=== PATIENT | male | born 1975 | race Caucasian/White ===

== ENCOUNTER 2019-08-01 12:06 | Day surgery (SDC) | payer MEDICAID ==
[~2019-08-01 12:06] MED LIST: Midazolam 1 MG/ML 2 ML SDV ONE; Propofol 200 MG/20 ML SDV ONE; fentaNYL 100 MCG/2 ML SDV ONE
[2019-08-01] MEDS ORDERED: Dextrose 5%-Lactated Ringers 1,000 ML IV SCH (12:30)
[2019-08-01 13:26] VITALS: BP 107/73; PULSE 64
[2019-08-01] MEDS ORDERED: Ondansetron 4 MG Tab.DIS PO ONE (14:10)
--- NOTE | 2019-08-06 08:44 | OR ---
DATE OF PROCEDURE: 08/01/2019 SURGEON: Pablito Valera MD PREOPERATIVE DIAGNOSIS: History of colon carcinoma. POSTOPERATIVE DIAGNOSIS: History of colon carcinoma with no recurrent neoplasia. OPERATIVE PROCEDURE: Flexible colonoscopy. ANESTHESIA: IV sedation. INDICATION FOR PROCEDURE: The patient is status post resection of the distal transverse colon and splenic flexure in 2016 for an adenocarcinoma. He has not had a post resection colonoscopy at this point, and plan is to proceed with a colonoscopy with biopsy and/or polypectomy as indicated. Potential risks of the procedure including bleeding and perforation were discussed, and the patient wishes to proceed. DETAILS OF PROCEDURE: The patient was taken to the operating room and placed in a left lateral decubitus position. IV sedation was administered, after which the initial digital rectal exam was performed, which was unremarkable. Colonoscope was then passed into the rectum with retroflexion revealing uncomplicated hemorrhoidal columns. Scope was then passed eventually to the level of the cecum. To that level, there were no diverticula and no areas of colitis. During examination, there was no evidence of any recurrent polyp formation nor was there any evidence of local recurrence at the colon anastomosis. Overall, we had an adequate prep, and the surfaces were not well visualized. Scope was then withdrawn, the above findings reconfirmed, and the procedure then concluded. With the patient being 44 years' old and already having had a colon carcinoma, I would recommend a repeat colonoscopy in 3 years. Pablito Valera MD /[id number]
== END 2019-08-01 14:20 | disposition home or self-care (01) ==
LOC: JP.SDS 12:06
PROVIDERS: ATTEND Surgery
DX: Z08 Encounter for follow-up examination after completed treatment for malignant neoplasm (principal); Z85.038 Personal history of other malignant neoplasm of large intestine; Z90.49 Acquired absence of other specified parts of digestive tract
CPT/HCPCS: A9270-GY; J2250; J2704; J3010; J7121

== ENCOUNTER 2019-09-12 05:37 | Day surgery (SDC) | payer MEDICAID ==
[2019-09-12] MEDS ORDERED: Dextrose 5%-Lactated Ringers 1,000 ML IV SCH (06:00)
[2019-09-12] MEDS ORDERED: Acetaminophen 500 MG Tab PO ONE (06:00)
[2019-09-12] MEDS ORDERED: Bupivacaine 0.5%/EPINEPHrine 1:200,000 50 ML MDV ONE (06:41)
[2019-09-12] MEDS ORDERED: Lidocaine 1% with EPINEPHrine 1:100,000 50 ML MDV ONE (07:03)
[2019-09-12] MEDS ORDERED: Bupivacaine 0.5% 50 ML MDV ONE (07:03)
[2019-09-12] MEDS ORDERED: fentaNYL 100 MCG/2 ML SDV ONE (07:07)
[2019-09-12] MEDS ORDERED: Propofol 200 MG/20 ML SDV ONE ×3 (07:07→08:00)
[2019-09-12] MEDS ORDERED: Midazolam 1 MG/ML 2 ML SDV ONE (07:07)
[2019-09-12] MEDS: ceFAZolin 2 GM in Premix Bag 1 BAG IV ONE ×2 (07:40→09:59)
[2019-09-12] MEDS ORDERED: Acetaminophen/oxyCODONE 325-5 MG Tab PO PRN (09:01)
[2019-09-12 10:03] VITALS: BP 116/85; PULSE 64
--- NOTE | 2019-09-22 12:09 | OR ---
DATE OF PROCEDURE: 09/12/2019 SURGEON: Pablito Valera MD PREOPERATIVE DIAGNOSIS: Recurrent incarcerated left inguinal hernia. POSTOPERATIVE DIAGNOSIS: 1. Recurrent incarcerated left inguinal hernia. 2. Prolapsed intraperitoneal mesh. 3. Ilioinguinal nerve at risk for scar entrapment. OPERATIVE PROCEDURES: 1. Repair of recurrent incarcerated left inguinal hernia with mesh plug technique (94250). 2. Removal of prolapsed intraperitoneal mesh (13818). 3. Excision of portion of left ilioinguinal nerve (86048). ANESTHESIA: Local plus IV sedation. CUSTOMER [employer] ARCHITECT: Jasmin Ashby PA-C INDICATIONS FOR PROCEDURE: This is a 44-year-old presenting with recurrent incarcerated left inguinal hernia, which was previously repaired with a mesh plug technique. Plan is to proceed with re-exploration and repair of the hernia, most likely with additional plug technique being employed. Potential risks of the procedure including bleeding, infection, injury to underlying viscera, problems with mesh becoming infected or the hernia recurring, chronic pain following the procedure were all reviewed, and the patient wishes to proceed. DETAILS OF PROCEDURE: The patient was taken to the operating room and placed in a supine position. After IV sedation was administered, the abdomen and groin areas were prepped and draped. The left inguinal area was then anesthetized with 1% lidocaine mixed with Marcaine and the previous incision was then reused and carried down through the skin, subcutaneous tissue, and through the external oblique aponeurosis. Subaponeurotic flaps were then raised superiorly and inferiorly. The ilioinguinal nerve on the left side was then identified and this was felt to likely be at risk for scar entrapment and portion of this was excised onto the lateral aspect of the incision. The cord structures were then mobilized upward. The patient was noted to have recurrent direct type hernia in this case. This involved some prolapse of the previously placed mesh plug into the intraperitoneal location. This was gradually excised. Peritoneum attached to it was excised and then subsequently closed with some 3-0 Vicryl stitch. New extra large mesh plug was then selected. This was placed into the defect and affixed to the Griffin's ligament with titanium tacking screws and then the underside of the conjoint tendon medially, superiorly, and laterally with horizontal mattress sutures of 2-0 Vicryl stitch. The conjoint tendon was then sutured down to the shelving portion of the inguinal ligament with a 0 Vicryl stitch as well. The flat portion of the mesh plug system was then placed onto the inguinal floor, fixed to pubic tubercle with tacking screw and then sutured lateral to the cord structures with 3-0 Vicryl stitch. The external oblique aponeurosis was then reapproximated with 3-0 Vicryl stitch as was the subcutaneous tissue and the skin closed with a 4-0 Vicryl subcuticular stitch. Dressing was applied. The patient was taken to the recovery room in satisfactory condition. Physician senior sales assistant, Jasmin Ashby, played an essential role in assisting in this case, helping to position the patient, retract structures as needed, as well as suturing and cutting sutures when indicated. Her presence improved patient safety and decreased operative time. Pablito Valera MD /[id number]
== END 2019-09-12 09:45 | disposition home or self-care (01) ==
LOC: JP.SDS 05:37
PROVIDERS: ATTEND Surgery
DX: K40.31 Unilateral inguinal hernia, with obstruction, without gangrene, recurrent (principal)
CPT/HCPCS: 49521; 64772; 88300; 88302; A9270; C1713; C1781; J0690; J2020; J2250; J2704; J3010; J3490; J7121

== ENCOUNTER 2019-09-28 17:57 | Emergency (ER) | payer MEDICAID ==
[2019-09-28 18:17] VITALS: BP 109/72; PULSE 88
[2019-09-28] MEDS ORDERED: Sodium Chloride 0.9% 10 ML Syringe FLUSH PRN (18:25)
[2019-09-28] MEDS ORDERED: fentaNYL 100 MCG/2 ML SDV IVPUSH ONE (18:28)
[2019-09-28] MEDS ORDERED: Lactated Ringers 1,000 ML IV SCH (18:30)
--- NOTE | 2019-09-28 18:30 | EDM.PDOC ---
ED HPI GENERAL MEDICAL PROBLEM - General Chief Complaint: Abdominal Pain Stated Complaint: LOWER LT SIDE PAIN Time Seen by Provider: 09/28/19 18:21 Source of Information: Reports: Patient, Family, RN Notes Reviewed History Limitations: Reports: No Limitations - History of Present Illness INITIAL COMMENTS - FREE TEXT/NARRATIVE: 44-year-old gentleman presents emergency department a complaint of abdominal pain, he is postop 2 weeks inguinal hernia repair on the left side he states initially had some improvement but then the pain has continually gotten worse his biggest trouble is he feels the pain shooting down into his testicle he has had some inflamed testicles which did resolve but the pain is now not improving left side Pain Score (Numeric/FACES): 8 - Related Data Allergies Allergy/AdvReac Type Severity Reaction Status Date / Time tramadol Allergy Diaphoresis Verified 09/28/19 18:06 Home Meds: Home Meds Ketorolac [Toradol] 10 mg PO TID PRN #20 tab 09/28/19 [Rx] oxyCODONE HCl/Acetaminophen [Percocet 5-325 mg Tablet] 1 tab PO Q6H PRN [History] Past Medical History HEENT History: Reports: Hard of Hearing Respiratory History: Reports: Other (See Below) Other Respiratory History: lung nodule Gastrointestinal History: Reports: Other (See Below) Other Gastrointestinal History: bilateral inguinal hernia Musculoskeletal History: Reports: Back Pain, Chronic Neurological History: Reports: Concussion Oncologic (Cancer) History: Reports: Colon - Infectious Disease History Infectious Disease History: Reports: Chicken Pox - Past Surgical History HEENT Surgical History: Reports: Adenoidectomy, Other (See Below) Other HEENT Surgeries/Procedures: adnoidectomy Respiratory Surgical History: Reports: None GI Surgical History: Reports: Colonoscopy, Hernia, Inguinal, Other (See Below) Other GI Surgeries/Procedures: colon resectin 01/26/2016 Neurological Surgical History: Reports: None Musculoskeletal Surgical History: Reports: None Oncologic Surgical History: Reports: Other (See Below) Other Oncologic Surgeries/Procedures: colon resection Dermatological Surgical History: Reports: None Social & Family History - Family History Family Medical History: Noncontributory Cardiac: Reports: Heart Murmur, High Cholesterol, Hypertension Respiratory: Reports: Asthma GI: Reports: Other (See Below) Other GI Family History: hernia-unknown where per pt. Musculoskeletal: Reports: Arthritis Neurological: Reports: Migraines Endocrine/Metabolic: Reports: Diabetes, Gestational, Diabetes, Type I Hematologic: Reports: Anesthesia Reaction Oncologic: Reports: Breast, Ovarian - Tobacco Use Smoking Status *Q: Never Smoker - Caffeine Use Caffeine Use: Reports: Soda - Recreational Drug Use Recreational Drug Use: Yes Recreational Drug Type: Reports: Marijuana/Hashish Recreational Drug Use Frequency: Monthly ED ROS GENERAL - Review of Systems Review Of Systems: See Below Constitutional: Reports: No Symptoms HEENT: Reports: No Symptoms Respiratory: Reports: No Symptoms Cardiovascular: Reports: No Symptoms GI/Abdominal: Reports: Abdominal Pain, Flatus. Denies: Nausea, Vomiting : Reports: No Symptoms Musculoskeletal: Reports: No Symptoms ED EXAM, GI/ABD - Physical Exam Exam: See Below Exam Limited By: No Limitations General Appearance: Alert, WD/WN, No Apparent Distress Neck: Normal Inspection, Supple, Non-Tender, Full Range of Motion Respiratory/Chest: No Respiratory Distress, Lungs Clear, Normal Breath Sounds, No Accessory Muscle Use, Chest Non-Tender Cardiovascular: Regular Rate, Rhythm, No Murmur GI/Abdominal Exam: Soft, Tender (Male) Exam: Normal Inspection, Scrotum Tenderness (L) Course - Vital Signs Last Recorded V/S: Last Vital Signs Temp 97 F 09/28/19 18:16 Pulse 88 09/28/19 18:16 Resp 12 09/28/19 18:16 BP 109/72 09/28/19 18:16 Pulse Ox 95 09/28/19 18:16 - Orders/Labs/Meds Orders: Active Orders 24 hr Category Date Time Status Peripheral IV Care [RC] . DIRECTED Care 09/28/19 18:25 Active Iopamidol [Isovue-300 (61%)] Med 09/28/19 18:45 Active 100 ml IV . DIRECTED Lactated Ringers [Ringers, Lactated] 1,000 ml Med 09/28/19 18:30 Active IV ASDIRECTED Sodium Chloride 0.9% [Normal Saline] 72 ml Med 09/28/19 18:45 Active IV ASDIRECTED Sodium Chloride 0.9% [Saline Flush] Med 09/28/19 18:25 Active 10 ml FLUSH ASDIRECTED PRN Peripheral IV Insertion Adult [OM.PC] Urgent Oth 09/28/19 18:25 Ordered Medication Orders Lactated Ringer's (Ringers, Lactated) 1,000 mls @ 999 mls/hr IV ASDIRECTED JOSHUA Last Admin: 09/28/19 18:36 Dose: 999 mls/hr Sodium Chloride (Normal Saline) 72 mls @ 3.5 mls/sec IV ASDIRECTED JOSHUA Last Admin: 09/28/19 18:54 Dose: 2.5 mls/sec Iopamidol (Isovue-300 (61%)) 100 ml IV . DIRECTED JOSHUA Last Admin: 09/28/19 18:53 Dose: 100 ml Sodium Chloride (Saline Flush) 10 ml FLUSH ASDIRECTED PRN PRN Reason: Keep Vein Open Last Admin: 09/28/19 18:54 Dose: 10 ml Labs: Laboratory Tests 09/28/19 09/28/19 09/28/19 Range/Units 18:16 18:38 18:38 WBC 9.9 (4.5-11.0) K/uL RBC 5.57 (4.30-5.90) M/uL Hgb 15.6 H D (12.0-15.0) g/dL Hct 47.8 (40.0-54.0) % MCV 86 (80-98) fL MCH 28 (27-31) pg MCHC 33 (32-36) % Plt Count 363 (150-400) K/uL Neut % (Auto) 61 (36-66) % Lymph % (Auto) 26 (24-44) % [place] % (Auto) 11 H (2-6) % Eos % (Auto) 1 L (2-4) % Baso % (Auto) 0 (0-1) % Sodium 143 (140-148) mmol/L Potassium 4.7 (3.6-5.2) mmol/L Chloride 104 (100-108) mmol/L Carbon Dioxide 26 (21-32) mmol/L Anion Gap 12.9 (5.0-14.0) mmol/L BUN 22 H D (7-18) mg/dL Creatinine 1.0 (0.8-1.3) mg/dL Est Cr Clr Drug Dosing 91.20 mL/min Estimated GFR (MDRD) > 60 (>60) Glucose 87 (74-106) mg/dL Lactic Acid (0.4-2.0) mmol/L Calcium 8.8 (8.5-10.1) mg/dL Total Bilirubin 0.4 (0.2-1.0) mg/dL AST 20 (15-37) U/L ALT 28 (12-78) U/L Alkaline Phosphatase 83 (46-116) U/L Total Protein 7.6 (6.4-8.2) g/dL Albumin 3.7 (3.4-5.0) g/dL Globulin 3.9 H (2.3-3.5) g/dL Albumin/Globulin Ratio 1.0 L (1.2-2.2) Lipase 125 (73-393) U/L Urine Color Yellow (YELLOW) Urine Appearance Clear (CLEAR) Urine pH 5.5 (5.0-8.0) Ur Specific [place] >= 1.030 (1.008-1.030) Urine Protein Negative (NEGATIVE) mg/dL Urine Glucose (UA) Negative (NEGATIVE) mg/dL Urine Ketones Negative (NEGATIVE) mg/dL Urine Occult Blood Trace-intact H (NEGATIVE) Urine Nitrite Negative (NEGATIVE) Urine Bilirubin Negative (NEGATIVE) Urine Urobilinogen 0.2 (0.2-1.0) EU/dL Ur Leukocyte Esterase Negative (NEGATIVE) Urine RBC Not seen (0-5) Urine WBC 0-5 (0-5) Ur Epithelial Cells Rare Amorphous Sediment Rare Urine Bacteria Rare Urine Mucus Few 09/28/19 Range/Units 18:38 WBC (4.5-11.0) K/uL RBC (4.30-5.90) M/uL Hgb (12.0-15.0) g/dL Hct (40.0-54.0) % MCV (80-98) fL MCH (27-31) pg MCHC (32-36) % Plt Count (150-400) K/uL Neut % (Auto) (36-66) % Lymph % (Auto) (24-44) % [place] % (Auto) (2-6) % Eos % (Auto) (2-4) % Baso % (Auto) (0-1) % Sodium (140-148) mmol/L Potassium (3.6-5.2) mmol/L Chloride (100-108) mmol/L Carbon Dioxide (21-32) mmol/L Anion Gap (5.0-14.0) mmol/L BUN (7-18) mg/dL Creatinine (0.8-1.3) mg/dL Est Cr Clr Drug Dosing mL/min Estimated GFR (MDRD) (>60) Glucose (74-106) mg/dL Lactic Acid 1.4 (0.4-2.0) mmol/L Calcium (8.5-10.1) mg/dL Total Bilirubin (0.2-1.0) mg/dL AST (15-37) U/L ALT (12-78) U/L Alkaline Phosphatase (46-116) U/L Total Protein (6.4-8.2) g/dL Albumin (3.4-5.0) g/dL Globulin (2.3-3.5) g/dL Albumin/Globulin Ratio (1.2-2.2) Lipase (73-393) U/L Urine Color (YELLOW) Urine Appearance (CLEAR) Urine pH (5.0-8.0) Ur Specific [place] (1.008-1.030) Urine Protein (NEGATIVE) mg/dL Urine Glucose (UA) (NEGATIVE) mg/dL Urine Ketones (NEGATIVE) mg/dL Urine Occult Blood (NEGATIVE) Urine Nitrite (NEGATIVE) Urine Bilirubin (NEGATIVE) Urine Urobilinogen (0.2-1.0) EU/dL Ur Leukocyte Esterase (NEGATIVE) Urine RBC (0-5) Urine WBC (0-5) Ur Epithelial Cells Amorphous Sediment Urine Bacteria Urine Mucus Meds: Medications Generic Name Dose Route Start Last Admin Trade Name Freq PRN Reason Stop Dose Admin Lactated Ringer's 1,000 mls @ 999 mls/hr 09/28/19 18:30 09/28/19 18:36 Ringers, Lactated IV 999 mls/hr ASDIRECTED JOSHUA Administration Sodium Chloride 72 mls @ 3.5 mls/sec 09/28/19 18:45 09/28/19 18:54 Normal Saline IV 2.5 mls/sec ASDIRECTED JOSHUA Administration Iopamidol 100 ml 09/28/19 18:45 09/28/19 18:53 Isovue-300 (61%) IV 100 ml . DIRECTED JOSHUA Administration Sodium Chloride 10 ml 09/28/19 18:25 09/28/19 18:54 Saline Flush FLUSH 10 ml ASDIRECTED PRN Administration Keep Vein Open Discontinued Medications Generic Name Dose Route Start Last Admin Trade Name Freq PRN Reason Stop Dose Admin Fentanyl 50 mcg 09/28/19 18:28 09/28/19 18:36 Sublimaze IVPUSH 09/28/19 18:29 50 mcg ONETIME ONE Administration Sodium Chloride 10 ml 09/28/19 18:32 09/28/19 18:35 Saline Flush FLUSH 09/28/19 18:33 10 ml ONETIME ONE Administration Departure - Departure Time of Disposition: 20:24 Disposition: Home, Self-Care 01 Condition: Fair Clinical Impression: Seroma - Discharge Information Prescriptions: Ketorolac [Toradol] 10 mg PO TID PRN #20 tab PRN Reason: Pain Referrals: Pablito Valera MD [Primary Care Provider] - Forms: ED Department Discharge Additional Instructions: Started Toradol 1 tablet 3 times a day to reduce inflammation, please follow-up Dr. Valera Sunday at 11 AM, please call the [facility] tomorrow morning to confirm your appointment time, your medications have been faxed to [facility] pharmacy Sepsis Event Note - Evaluation Sepsis Screening Result: No Definite Risk - Focused Exam Vital Signs: Vital Signs Temp Pulse Resp BP Pulse Ox 09/28/19 18:16 97 F 88 12 109/72 95 Date Exam was Performed: 09/28/19 Time Exam was Performed: 20:22 - My Orders Last 24 Hours: My Active Orders 09/28/19 18:25 Peripheral IV Care [RC] . DIRECTED Sodium Chloride 0.9% [Saline Flush] 10 ml FLUSH ASDIRECTED PRN Peripheral IV Insertion Adult [OM.PC] Urgent 09/28/19 18:30 Lactated Ringers [Ringers, Lactated] 1,000 ml IV ASDIRECTED 09/28/19 18:45 Iopamidol [Isovue-300 (61%)] 100 ml IV . DIRECTED Sodium Chloride 0.9% [Normal Saline] 72 ml IV ASDIRECTED - Assessment/Plan Last 24 Hours: My Active Orders 09/28/19 18:25 Peripheral IV Care [RC] . DIRECTED Sodium Chloride 0.9% [Saline Flush] 10 ml FLUSH ASDIRECTED PRN Peripheral IV Insertion Adult [OM.PC] Urgent 09/28/19 18:30 Lactated Ringers [Ringers, Lactated] 1,000 ml IV ASDIRECTED 09/28/19 18:45 Iopamidol [Isovue-300 (61%)] 100 ml IV . DIRECTED Sodium Chloride 0.9% [Normal Saline] 72 ml IV ASDIRECTED Plan: Assessment Acuity = acute Site and laterality = seroma left inguinal region area pushing on spermatic cord Etiology = unknown probable postoperative Manifestations = pelvic pain testicular pain Location of injury = Home Lab values = CBC, CMP unremarkable urinalysis unremarkable CT scan describes a 2.8 x 2.7 x 3.7 fluid collection left inguinal region Plan Call discussed case Dr. Valera at 2019 recommended Toradol 10 mg p.o. 3 times daily total #20 follow-up with Dr. Valera in clinic Sunday of next week at 11 AM for further treatment This note was dictated using [employer] voice recognition software please call with any questions on syntax or grammar.
[2019-09-28] MEDS ORDERED: Sodium Chloride 0.9% 10 ML Syringe FLUSH ONE (18:32)
[2019-09-28] MEDS ORDERED: Iopamidol 612 MG/ML 100 ML Bottle IV SCH (18:45)
--- NOTE | 2019-09-28 20:10 | CRLCT ---
INDICATION: Left pelvic pain. Two weeks post inguinal hernia repair. TECHNIQUE: CT abdomen and pelvis acquired with 100 cc of Isovue-300 IV contrast. COMPARISON: CT chest, abdomen and pelvis 07/25/2019. FINDINGS: Lower chest: Lung bases are clear. No pleural or pericardial effusions. Liver: Unremarkable. Spleen: Unremarkable. Pancreas: Unremarkable. Gallbladder and bile ducts: Unremarkable. Kidneys: Bilateral low-density lesions which are too small to characterize are unchanged and likely represent cysts. Kidneys are otherwise unremarkable. Adrenal glands: 2 cm left adrenal nodule is unchanged. Right adrenal gland is unremarkable. GI tract: No bowel obstruction or acute inflammatory changes involving the GI tract. No evidence of acute appendicitis. Stable appearing postoperative changes in the left abdomen. No free air or free fluid. Vascular structures: Unremarkable. Lymph nodes: Unremarkable. Pelvic Organs: Prostate and bladder as imaged are unremarkable. Interval changes of left inguinal hernia repair. There is heterogeneous soft tissue stranding in the region of the hernia repair. Fluid collection in the left inguinal region is 2.8 x 2.7 x 3.7 cm in AP, transverse and craniocaudal dimension. Bones: No acute abnormality. IMPRESSION: 1. Fluid collection in the left inguinal region is thought to most likely represent a postoperative seroma. This measures 2.8 x 2.7 x 3.7 cm. Differential considerations would also include abscess in the appropriate clinical setting. 2. Soft tissue stranding in the left inguinal region may be postoperative or infectious in the appropriate clinical setting. 3. Otherwise, no acute intra-abdominal or pelvic abnormality. Dictated by Santo Cavazos MD @ 09/28/2019 8:09:22 PM Dictated by: Santo Cavazos MD @ 09/28/2019 20:09:39 (Electronically Signed)
[2019-09-28] MEDS ORDERED: Ketorolac 30 MG/ML SDV IVPUSH ONE (20:25)
== END 2019-09-28 20:38 | disposition home or self-care (01) ==
LOC: JP.ED 17:57
DX: L76.34 Postprocedural seroma of skin and subcutaneous tissue following other procedure (principal); Z88.6 Allergy status to analgesic agent
CPT/HCPCS: 36415; 74177; 80053; 81001; 83605; 83690; 85025; 96361; 96374; 96375; 99283; 99284; J1885; J3010; J7050; J7120; Q9967

== ENCOUNTER 2022-03-04 19:47 | Emergency (ER) | payer MEDICAID ==
[2022-03-04] MEDS ORDERED: Sodium Chloride 0.9% 10 ML Syringe FLUSH PRN (19:56)
[2022-03-04 20:36] LABS: ESTIMATED GFR 84 mL/min (>60)
[2022-03-04] MEDS ORDERED: Sodium Chloride 0.9% 1,000 ML IV SCH (20:45)
[2022-03-04] MEDS ORDERED: Ondansetron 4 MG/2 ML SDV IVPUSH ONE (20:46)
[2022-03-04 22:01] VITALS: BP 144/95; PULSE 105
== END 2022-03-04 22:00 | disposition home or self-care (01) ==
LOC: JP.ED 19:47
DX: U07.1 COVID-19 (principal); E86.0 Dehydration; Z88.5 Allergy status to narcotic agent
CPT/HCPCS: 36415; 71045; 80053; 83605; 85025; 85379; 86140; 87635; 96361; 96374; 99284; J2405; J7030; U0002